=== PATIENT | male | born 1950 | race Native Hawaiian/Other Pacific Islander ===

== ENCOUNTER 2021-02-28 01:31 | Emergency (ER) | payer OTHER ==
[~2021-02-28] VITALS: Ht 180.3 cm; Wt 66.2 kg
[2021-02-28 01:35] VITALS: BP 142/86; TEMP 98.3
[2021-02-28 02:01] LABS: PLATELET COUNT 181 K/uL (142-355)
[2021-02-28 02:18] LABS: POTASSIUM 3.4 mmol/L (3.6-5.2)
[2021-02-28] MEDS ORDERED: DONEPEZIL HYDROC5 MG PO (17:05)
[2021-02-28] MEDS ORDERED: ASA LOW DOSE81 MG PO (21:12)
[2021-02-28] MEDS ORDERED: METO50TA27 PO (21:13)
[2021-02-28] MEDS ORDERED: CLOP75TA2 PO (21:13)
[2021-02-28] MEDS ORDERED: BENICAR40 MG PO (21:16)
[2021-02-28] MEDS ORDERED: QUETIAPINE200 MG PO (21:19)
[2021-02-28] MEDS ORDERED: TYLENOL325 MG PO (21:21)
[2021-02-28] MEDS ORDERED: LORA1TAB17 PO (21:55)
[2021-02-28] MEDS ORDERED: TAMS0.4C PO (21:56)
[2021-02-28] MEDS ORDERED: MELATONIN5 M2 PO (21:58)
[2021-02-28] MEDS ORDERED: ROSU10TA PO (21:59)
[2021-02-28] MEDS ORDERED: VIIBRYD40 MG PO (22:00)
[2021-03-01] MEDS ORDERED: LORA1TAB17 PO (07:40)
[2021-03-01] MEDS ORDERED: MELATONIN10 M2 PO (07:41)
== END 2021-02-28 02:45 | disposition still patient (30) ==
LOC: ED 01:31
PROVIDERS: Hospitalist
DX: F25.8 Other schizoaffective disorders (principal); F03.91 Unspecified dementia, unspecified severity, with behavioral disturbance; Z11.52 Encounter for screening for COVID-19; Z04.6 Encounter for general psychiatric examination, requested by authority
CPT/HCPCS: 80053; 85027; 87635; 93005; 99283; U0003